=== PATIENT | male | born 1995 | race Caucasian/White ===

== ENCOUNTER 2020-03-25 19:17 | Emergency (ER) | payer OTHER, SELFPAY ==
[2020-03-25 19:20] VITALS: BP 131/100; PULSE 92; RESP 14; TEMP 36.9; O2SAT 100; BMI 22.8
--- NOTE | 2020-03-25 20:34 | ED_ITS ---
HPI - Dental/Oral General Chief complaint: Dental/Oral Stated complaint: dental pain Time Seen by Provider: 03/25/20 20:00 Source: patient Mode of arrival: Ambulatory Limitations: no limitations History of Present Illness HPI Narrative: 24-year-old male daily smoker with history of dental pain presents with a chief complaint of a few days of severe right lower dental pain. He denies any injury. He denies any known dental fracture or injury. He has had no facial swelling and denies any intraoral swelling, drainage or foul taste. He has a dentist appointment scheduled for Monday. He has taken some Motrin this afternoon with minimal relief. Teeth map: 1. Onset (ago): day(s) Duration: constant Severity: severe Relieving factors: nothing Exacerbating factors: chewing Context: history of dental caries Treatment prior to arrival: oral analgesic Related Data Previous Rx's Medication Instructions Recorded amoxicillin-pot clavulanate 875 mg PO BID #20 tab 02/11/17 [Augmentin] ketorolac 10 mg PO Q6H PRN #14 tab 03/25/20 Allergies Allergy/AdvReac Type Severity Reaction Status Date / Time grass pollen-perennial rye, Allergy Mild RASH Unverified 11/22/17 11:56 standar [GRASS POLL-PERENNIAL RYE,STD] No Known Drug Allergies Allergy Unknown Unverified 11/22/17 11:56 [NO KNOWN DRUG ALLERGIES] Review of Systems Constitutional Constitutional: Denies chills, Denies fatigue, Denies fever(s), Denies frequent falls, Denies lethargy and Denies weakness Eyes Eyes: Denies change in vision, Denies eye discharge, Denies irritation and Denies loss of vision ENT Ears, Nose, Mouth, and Throat: Denies change in voice, Denies dizziness, Denies neck pain, Denies sore throat and Denies throat swelling Cardiovascular Cardiovascular: Denies chest pain, Denies irregular heart rhythm, Denies lightheadedness, Denies palpitations, Denies dyspnea, Denies dyspnea on exertion and Denies orthopnea Respiratory Respiratory: Denies cough, Denies dyspnea, Denies dyspnea on exertion and Denies wheezing Gastrointestinal Gastrointestinal: Denies abdominal pain, Denies change in bowel habits, Denies diarrhea, Denies nausea and Denies vomiting Musculoskeletal Musculoskeletal: Denies neck pain and Denies numbness Integumentary/Breasts Skin/Breast: Denies pruritus, Denies erythema, Denies rash and Denies wounds Neurologic Neurologic: Denies behavioral changes, Denies confusion, Denies dizziness, Denies frequent falls, Denies loss of vision, Denies numbness and Denies weakness Psychiatric Psychiatric: Denies anxiety, Denies behavioral changes, Denies confusion, Denies depression, Denies homicidal ideation and Denies suicidal ideation Endocrine Endocrine: Denies fatigue, Denies flushing and Denies palpitations Hematologic/Lymphatic Hematologic/Lymphatic: Denies easy bruising Allergic/Immunologic Allergic/Immunologic: Denies urticaria, Denies throat swelling and Denies wheezing Patient History Social History Smoking Status: Current every day smoker Smoking Status: Current every day smoker tobacco type: vaping alcohol intake frequency: 0-2 drinks per day Substance Use Type: does not use Exam Narrative Exam Narrative: GENERAL: [24] year old patient appears stated age. Well- nourished, well-developed patient, in mild distress. HEAD: Atraumatic. Normocephalic. EYES: Pupils equal round and reactive. Extraocular motions intact. No scleral icterus. No injection or drainage. ENT: No facial swelling or intraoral swelling. No dental fracture Nose without bleeding, purulent drainage. Throat without erythema, tonsillar hypertrophy or exudate. Airway patent. NECK: Trachea midline. Non tender CARDIOVASCULAR: Regular rate and rhythm without murmurs, gallops, or rubs. RESPIRATORY: Clear to auscultation. Breath sounds equal bilaterally. No wheezes, rales, or rhonchi. GASTROINTESTINAL: Abdomen soft, non-tender, nondistended. EXTREMITIES: No edema or joint tenderness. BACK: Nontender without deformity or crepitance. No flank tenderness. NEURO: AOx3. SKIN: No rash or erythema of visible areas Initial Vital Signs Initial Vital Signs: Vital Signs Temperature 98.4 F 03/25/20 19:20 Pulse Rate 92 H 03/25/20 19:20 Respiratory Rate 14 03/25/20 19:20 Blood Pressure 131/100 H 03/25/20 19:20 Pulse Oximetry 100 03/25/20 19:20 Procedures Nerve Block Nerve Block 1: Time out performed: Yes Local Anesthetic: bupivacaine 0.25% and with epi Intraoral Nerve Block: inferior alveolar Procedure Successful: Yes Patient Tolerated Procedure: Well Complications: none Course Orders Ordered: Discontinued Medications Bupivacaine HCl/Epinephrine Bitart (Sensorcaine 0.5% W/ Epi (Pf)) 5 ml SUBCUT NOW ONE Stop: 03/25/20 21:11 Last Admin: 03/25/20 21:16 Dose: 5 ml Documented by: [facility]ST Vital Signs Vital signs: Vital Signs - 8 hr 03/25/20 21:28 Blood Pressure 131/100 H Pulse Oximetry 99 MDM - Dental/Oral MDM Narrative Medical decision making narrative: Significant dental pain is nearly completely resolved with the above-stated therapy. There is no facial swelling or evidence of intraoral infection, therefore no antibiotics given. Patient encouraged to follow-up with his dentist later in the week as planned. Return precautions given Discharge Plan Departure Patient Disposition: Home Clinical Impression: Odontalgia Discharge Date/Time: 03/25/20 21:30 Instructions: DI for Dental Pain Activity Restrictions/Additional Instructions: *You have been diagnosed with [dental pain] *What to do: *Take medications as directed: Prescription sent to [facility] *Follow up with your primary care provider in 2-3 days, call for an appointment. Let them know you were seen in the Emergency Department and that we ask that you be seen in follow up *Return to ER if you should have any new, worsening or concerning symptoms, such as [ ] Prescriptions: New ketorolac 10 mg tablet 10 mg PO Q6H PRN (Reason: pain) Qty: 14 RF: 0 No Action amoxicillin-pot clavulanate [Augmentin] 875 MG/125 MG tablet 875 mg PO BID Qty: 20 RF: 0
[2020-03-25] MEDS: BUPIVACAINE 0.5% W/ EPI (PF) 30 ML VIAL 5 ML SUBCUT (21:16)
[2020-03-25 21:28] VITALS: BP 131/100; O2SAT 99
== END 2020-03-25 21:30 | disposition home or self-care (01) ==
PROVIDERS: Emergency Provider Emergency Medicine
DX: K08.89 Other specified disorders of teeth and supporting structures (principal)
CPT/HCPCS: 64450; 99281; 99283